=== PATIENT | female | born 1970 | race Caucasian/White ===

== ENCOUNTER → 2016-10-17 | Outpatient (CLI) | payer OTHER | LOC: FIMAGING 11:33 | PROVIDERS: ATTEND Family Medicine | DX: Z12.31 Encounter for screening mammogram for malignant neoplasm of breast (principal) | CPT/HCPCS: G0202 ==

== ENCOUNTER → 2016-10-23 | Outpatient (CLI) | payer OTHER | LOC: FIMAGING 15:28 | PROVIDERS: ATTEND Family Medicine | DX: Z12.39 Encounter for other screening for malignant neoplasm of breast (principal); R92.2 Inconclusive mammogram ==

== ENCOUNTER 2016-12-29 23:09 | Inpatient (IN) | payer OTHER ==
[2016-12-29] MEDS ORDERED: fentaNYL 100 MCG/2 ML INJ ONE (23:22)
[2016-12-29] MEDS ORDERED: ONDANSETRON 4 MG/2 ML VIAL ONE (23:22)
[2016-12-29] MEDS ORDERED: LORazepam 2 MG/ML INJ ONE (23:30)
[2016-12-29 23:35] LABS: % IMMATURE GRANULYOCYTES 0.6 % (0.0-1.1); ABSOLUTE IMMATURE GRANULOCYTES 0.05 10^3/uL (0.00-0.10); ADD DIFF? NO; ADD MORPH? NO; ADD SCAN? NO; ATYPICAL LYMPHOCYTE FLAG 10 (0-99); FRAGMENT RBC FLAG 0 (0-99); HEMATOCRIT 40.9 % (38.0-47.0); HEMOGLOBIN 13.8 g/dL (12.6-16.3); LEFT SHIFT FLG 0 (0-99); LIPEMIA HEMOLYSIS FLAG 80 (0-99); MEAN CELL HEMOGLOBIN 30.9 pg (27.9-34.1); MEAN CELL HEMOGLOBIN CONCENTR. 33.7 g/dL (32.4-36.7); MEAN CELL VOLUME 91.7 fL (81.5-99.8); MEAN PLATELET VOLUME 10.9 fL (8.7-11.7); PLATELET CLUMPS FLAG 0 (0-99); PLATELET COUNT 253 10^3/uL (150-400); RED BLOOD CELL COUNT 4.46 10^6/uL (4.18-5.33); RED CELL DISTRIBUTION WIDTH 12.7 % (11.5-15.2)
[2016-12-29] MEDS ORDERED: IOPAMIDOL (ISOVUE-300) 100 ML BTL ONE (23:46)
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
[2016-12-29] MEDS ORDERED: LORazepam 2 MG/ML INJ IVP ONE (23:51)
[2016-12-29] MEDS ORDERED: fentaNYL 100 MCG/2 ML INJ IVP ONE (23:51)
[2016-12-29] MEDS ORDERED: ONDANSETRON DISINTEGRATING 4 MG TAB PO ONE (23:51)
[2016-12-30 00:02] LABS: ANION GAP 12 mEq/L (8-16); CALCIUM 9.4 mg/dL (8.5-10.4); CARBON DIOXIDE 25 mEq/l (22-31); CHLORIDE 107 mEq/L (97-110); CREATININE 0.9 mg/dL (0.6-1.0); GLOMERULAR FILTRATION RATE > 60; GLUCOSE 94 mg/dL (70-100); POTASSIUM 3.5 mEq/L (3.5-5.2); SODIUM 144 mEq/L (134-144)
[2016-12-30] MEDS ORDERED: NS 1,000 ML IV ONE (00:21)
[2016-12-30] MEDS ORDERED: fentaNYL 100 MCG/2 ML INJ IVP ONE ×2 (00:51→02:51)
[2016-12-30] MEDS ORDERED: NS W/ 20 KCl/L 1,000 ML IV SCH (01:00)
[2016-12-30] MEDS ORDERED: CYCLOBENZAPRINE 10 MG TAB PO PRN (01:04)
[2016-12-30 01:24] LABS: ETHANOL SERUM 237 mg/dL (0-10)
[2016-12-30] MEDS ORDERED: ONDANSETRON 4 MG/2 ML VIAL ONE (01:33)
[2016-12-30] MEDS: KETOROLAC 30 MG/1 ML SDV IVP PRN ×3 (03:06→18:47)
[2016-12-30] MEDS: HYDROmorphONE/DILAUDID 1 MG/ML SYR IVP PRN ×5 (03:12→18:48)
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
[2016-12-30 05:39] LABS: % IMMATURE GRANULYOCYTES 0.8 % (0.0-1.1); ADD DIFF? NO; ADD MORPH? NO; ADD SCAN? NO; ATYPICAL LYMPHOCYTE FLAG 0 (0-99); FRAGMENT RBC FLAG 0 (0-99); HEMATOCRIT 38.5 % (38.0-47.0); LEFT SHIFT FLG 0 (0-99); LIPEMIA HEMOLYSIS FLAG 90 (0-99); MEAN CELL HEMOGLOBIN 31.3 pg (27.9-34.1); MEAN CELL HEMOGLOBIN CONCENTR. 33.8 g/dL (32.4-36.7); MEAN CELL VOLUME 92.5 fL (81.5-99.8); MEAN PLATELET VOLUME 10.9 fL (8.7-11.7); PLATELET CLUMPS FLAG 20 (0-99); PLATELET COUNT 217 10^3/uL (150-400); RED BLOOD CELL COUNT 4.16 10^6/uL (4.18-5.33); RED CELL DISTRIBUTION WIDTH 12.9 % (11.5-15.2)
[2016-12-30 06:23] LABS: ALANINE AMINOTRANSFERASE 163 IU/L (9-52); ALBUMIN 4.1 g/dL (3.5-5.0); ALKALINE PHOSPHATASE 55 IU/L (38-126); ANION GAP 16 mEq/L (8-16); ASPARTATE AMINOTRANSFERASE 195 IU/L (14-46); BILIRUBIN,TOTAL 0.4 mg/dL (0.1-1.4); CALCIUM 8.5 mg/dL (8.5-10.4); CARBON DIOXIDE 19 mEq/l (22-31); CHLORIDE 110 mEq/L (97-110); CREATININE 0.6 mg/dL (0.6-1.0); GLOMERULAR FILTRATION RATE > 60; GLUCOSE 106 mg/dL (70-100); SODIUM 145 mEq/L (134-144); TOTAL PROTEIN 6.7 g/dL (6.3-8.2)
[2016-12-30] MEDS: ACETAMINOPHEN 500 MG TAB PO SCH ×3 (06:24→22:00)
[2016-12-30] MEDS: LIDOCAINE 5% 1 EA PATCH TD SCH (07:56)
[2016-12-30] MEDS: CYCLOBENZAPRINE 10 MG TAB PO PRN ×3 (10:21→18:48)
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
--- NOTE | 2016-12-30 11:23 | TRAUMAPN ---
- Problem/Surgery Performed (1) Clavicle fracture Assessment/Plan: 12/30/2016 PAD#0 Assessment: Clavicle nondisplaced. Plan: Sling Ortho consult Qualifiers: Encounter type: subsequent encounter Clavicle location: lateral end Fracture type: closed Fracture alignment: nondisplaced Laterality: right Fracture healing: F (2) Scapular fracture Assessment/Plan: 12/30/2016 Assessment: scapular fracture tender Plan: sling will ask ortho to see Qualifiers: Encounter type: E Scapula location: S Fracture type: F Fracture alignment: F Laterality: L Fracture healing: F (3) Subdural hematoma Assessment/Plan: 12/30/2016 Assessment: GCS decreased last PM to 11- F/u CT showed no change Now oriented x3, GCS 15 Plan: Continue neuro checks (4) Ribs, multiple fractures Assessment/Plan: 12/30/2016 Assessment: IS to 1500. CXR improved Plan: Continue supportive care Rib fracture/scapular and clavicular fracture healing course outlined Qualifiers: Encounter type: subsequent encounter Fracture type: closed Laterality: right Fracture healing: F (5) Chest pain Qualifiers: Chest pain type: other chest pain Ischemic chest pain type: I Qualified Code(s): R07.89 - Other chest pain Subjective: C/o right shoulder/chest wall pain Objective: Vital Signs Temp Pulse Resp BP Pulse Ox 37.2 C 73 14 111/69 100 12/30/16 08:00 12/30/16 10:00 12/30/16 10:00 12/30/16 10:00 12/30/16 10:00 Laboratory Results 12/30/16 05:10 12/30/16 05:10 12/29/16 12/30/16 12/31/16 05:59 05:59 05:59 Intake Total 1396 Output Total 100 Balance 1296 - C-Spine Clearance Cervical Spine Cleared: Yes Provider who Cleared Cervical Spine: Physical Exam - Physical Exam General Appearance: WD/WN, alert, mild distress EENT: other (right orbit ecchymosis) Neck: non-tender, full range of motion, supple, normal inspection Respiratory: lungs clear, normal breath sounds Cardiac/Chest: regular rate, rhythm Abdomen: normal bowel sounds, non-tender, soft Pelvic Exam: deferred Rectal: deferred Back: Normal inspection Skin: normal color, warm/dry Neuro/Psych: no motor/sensory deficits, alert, normal mood/affect, oriented x 3 Time Spent w/Patient (minutes): 35
[2016-12-30] MEDS: ADDERALL 10 MG TAB PO SCH (12:33)
[2016-12-30] MEDS: ONDANSETRON 4 MG/2 ML VIAL IVP PRN ×2 (12:33→18:42)
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
[2016-12-30] MEDS: HYDROmorphONE/DILAUDID 2 MG TAB PO PRN ×2 (15:01→22:00)
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
[2016-12-30] MEDS ORDERED: PATCH REMOVAL 1 EA PATCH TD SCH (21:00)
[2016-12-31] MEDS: HYDROmorphONE/DILAUDID 2 MG TAB PO PRN ×4 (01:21→15:28)
[2016-12-31] MEDS: KETOROLAC 30 MG/1 ML SDV IVP PRN ×2 (01:21→14:28)
[2016-12-31] MEDS: ACETAMINOPHEN 500 MG TAB PO SCH ×2 (05:50→13:14)
[2016-12-31] MEDS: HYDROmorphONE/DILAUDID 1 MG/ML SYR IVP PRN (06:12)
[2016-12-31 06:14] LABS: ALANINE AMINOTRANSFERASE 91 IU/L (9-52); ALBUMIN 3.2 g/dL (3.5-5.0); ALKALINE PHOSPHATASE 53 IU/L (38-126); ANION GAP 9 mEq/L (8-16); ASPARTATE AMINOTRANSFERASE 74 IU/L (14-46); BILIRUBIN,TOTAL 1.1 mg/dL (0.1-1.4); CALCIUM 8.7 mg/dL (8.5-10.4); CARBON DIOXIDE 22 mEq/l (22-31); CHLORIDE 107 mEq/L (97-110); CREATININE 0.7 mg/dL (0.6-1.0); GLOMERULAR FILTRATION RATE > 60; GLUCOSE 95 mg/dL (70-100); POTASSIUM 3.9 mEq/L (3.5-5.2); SODIUM 138 mEq/L (134-144); TOTAL PROTEIN 5.8 g/dL (6.3-8.2)
[2016-12-31] MEDS: ONDANSETRON 4 MG/2 ML VIAL IVP PRN ×2 (06:28→12:24)
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
[2016-12-31] MEDS: ADDERALL 10 MG TAB PO SCH (08:02)
[2016-12-31] MEDS: LIDOCAINE 5% 1 EA PATCH TD SCH (08:06)
[2016-12-31] MEDS ORDERED: POLYETHYLENE GLYCOL 3350 17 GM PKT PO PRN (08:52)
[2016-12-31] MEDS ORDERED: MAGNESIUM HYDROXIDE 30 ML UDCUP PO PRN (08:52)
[2016-12-31] MEDS ORDERED: BISACODYL 10 MG SUPP PR PRN (08:52)
[2016-12-31] MEDS ORDERED: LACTULOSE 20 GM/30 ML UDCUP PO PRN (08:52)
[2016-12-31] MEDS ORDERED: PROGESTERONE,MICR 100 MG CAP PO SCH (09:00)
[2016-12-31] MEDS ORDERED: SENNOSIDES/DOCUSATE SODIUM TAB PO SCH (09:00)
[2016-12-31 11:28] VITALS: TEMP 98.5
--- NOTE | 2016-12-31 14:56 | TRAUMAPN ---
- Problem/Surgery Performed (1) Clavicle fracture Assessment/Plan: 12/30/2016 PAD#0 Assessment: Clavicle nondisplaced. Plan: Sling Ortho consult 12/31/2016 PAD#1 Assessment: Ortho agrees that there is no intervention needed at this time Plan: Office follow up Qualifiers: Encounter type: subsequent encounter Clavicle location: lateral end Fracture type: closed Fracture alignment: nondisplaced Laterality: right Fracture healing: F (2) Scapular fracture Assessment/Plan: 12/30/2016 Assessment: scapular fracture tender Plan: sling will ask ortho to see PAD#1 Assessment: C/o right back pain Plan: Sling and orthopedic follow up Qualifiers: Encounter type: E Scapula location: S Fracture type: F Fracture alignment: F Laterality: L Fracture healing: F (3) Subdural hematoma Assessment/Plan: 12/30/2016 Assessment: GCS decreased last PM to 11- F/u CT showed no change Now oriented x3, GCS 15 Plan: Continue neuro checks 12/31/2016 Assessment: Neuro checks okay C/o occasional headache Plan: Neurosurgery f/u (4) Ribs, multiple fractures Assessment/Plan: 12/30/2016 Assessment: IS to 1500. CXR improved Plan: Continue supportive care Rib fracture/scapular and clavicular fracture healing course outlined 12/31/2016 PAD#1 IS improving Lungs clear Qualifiers: Encounter type: subsequent encounter Fracture type: closed Laterality: right Fracture healing: F (5) Chest pain Qualifiers: Chest pain type: other chest pain Ischemic chest pain type: I Qualified Code(s): R07.89 - Other chest pain Assessment/Plan: PAD#1 Pain still an issue. Not set for discharge Subjective: Notes flatus and small stool. C/o right back pain but has not had Toradol today Objective: Vital Signs Temp Pulse Resp BP Pulse Ox 36.9 C 64 14 116/86 H 100 12/31/16 11:24 12/31/16 11:24 12/31/16 11:24 12/31/16 11:24 12/31/16 11:24 Laboratory Results 12/30/16 05:10 12/31/16 05:51 12/30/16 12/31/16 01/01/17 05:59 05:59 05:59 Intake Total 1396 1500 Output Total 100 700 Balance 1296 800 - C-Spine Clearance Cervical Spine Cleared: Yes Provider who Cleared Cervical Spine: Physical Exam - Physical Exam General Appearance: WD/WN, alert, moderate distress EENT: other (Right racoon eye. vision intact) Neck: non-tender, full range of motion, supple Respiratory: lungs clear, normal breath sounds Cardiac/Chest: regular rate, rhythm Abdomen: normal bowel sounds, non-tender, soft Pelvic Exam: deferred Rectal: deferred Back: Normal inspection Skin: normal color, warm/dry Extremities: other (C/o right elbow pain. No focal findings and probably represents pain radiation from shoulder) Neuro/Psych: no motor/sensory deficits, alert, normal mood/affect, oriented x 3 Time Spent w/Patient (minutes): 25
[2016-12-31 15:31] VITALS: BP 109/72
[2016-12-31 17:25] VITALS: PULSE 63; RESP 15; O2SAT 99
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
[2017-01-02] MEDS ORDERED: ESTRADIOL VIVELLE 0.05 MG PATCH TD SCH (06:00)
== END 2016-12-31 17:50 | disposition home or self-care (01) | DRG 964 ==
LOC: EDUNIT# → F2N 12-30 02:18
PROVIDERS: ADMIT Surgery; ATTEND Surgery
DX: S06.6X9A Traumatic subarachnoid hemorrhage with loss of consciousness of unspecified duration, initial encounter (principal); S06.5X1A Traumatic subdural hemorrhage with loss of consciousness of 30 minutes or less, initial encounter; S27.0XXA Traumatic pneumothorax, initial encounter; S42.034A Nondisplaced fracture of lateral end of right clavicle, initial encounter for closed fracture; S42.111A Displaced fracture of body of scapula, right shoulder, initial encounter for closed fracture; S22.41XA Multiple fractures of ribs, right side, initial encounter for closed fracture; S02.81XA Fracture of other specified skull and facial bones, right side, initial encounter for closed fracture; S02.2XXA Fracture of nasal bones, initial encounter for closed fracture; S02.40EA Zygomatic fracture, right side, initial encounter for closed fracture; S02.40CA Maxillary fracture, right side, initial encounter for closed fracture; S05.11XA Contusion of eyeball and orbital tissues, right eye, initial encounter; S27.329A Contusion of lung, unspecified, initial encounter; S80.211A Abrasion, right knee, initial encounter; F10.10 Alcohol abuse, uncomplicated; E78.5 Hyperlipidemia, unspecified; V18.0XXA Pedal cycle driver injured in noncollision transport accident in nontraffic accident, initial encounter; Y93.55 Activity, bike riding; Y92.410 Unspecified street and highway as the place of occurrence of the external cause; Y99.8 Other external cause status; Y90.7 Blood alcohol level of 200-239 mg/100 ml; R40.2412 Glasgow coma scale score 13-15, at arrival to emergency department; R40.2423 Glasgow coma scale score 9-12, at hospital admission; Z88.2 Allergy status to sulfonamides
CPT/HCPCS: 80305; 82947-QW; 92523-GN; 96374; 97116-GP; 97161-GP; 97165-GO; 97535-GO; G0480; J1170; J1885; J2060; J2405; J3010; Q9967

== ENCOUNTER 2017-01-06 13:05 | Emergency (ER) | payer OTHER ==
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
[2017-01-06] MEDS ORDERED: METOCLOPRAMIDE 10 MG/2 ML VIAL IVP ONE (13:34)
[2017-01-06] MEDS ORDERED: HYDROmorphONE/DILAUDID 1 MG/ML SYR IVP ONE (13:35)
[2017-01-06 14:25] VITALS: BP 111/84; PULSE 87; RESP 12; O2SAT 92
[2017-01-06 15:02] VITALS: TEMP 98.6
== END 2017-01-06 14:57 | disposition home or self-care (01) ==
DX: G44.309 Post-traumatic headache, unspecified, not intractable (principal); S06.5X0D Traumatic subdural hemorrhage without loss of consciousness, subsequent encounter; V18.9XXD Unspecified pedal cyclist injured in noncollision transport accident in traffic accident, subsequent encounter
CPT/HCPCS: 96374; J1170; J2765

== ENCOUNTER → 2017-05-07 | Outpatient (CLI) | payer OTHER | LOC: FIMAGING 12:15 | PROVIDERS: ATTEND Obstetrics & Gynecology Gynecology | DX: N63.10 Unspecified lump in the right breast, unspecified quadrant (principal) | CPT/HCPCS: G0206 ==

== ENCOUNTER → 2018-08-25 | Outpatient (CLI) | payer OTHER ==
--- NOTE | 2018-08-26 13:04 | CPEEG ---
[f rep st] ELECTROENCEPHALOGRAM EEG. DATE OF STUDY: 08/25/2018 INTERPRETATION: Normal EEG during wakefulness and sleep. There were no potentially epileptogenic ab normalities present during the awake or sleep recordings. REPORT: This EEG contains 10 Hz alpha activity to the posterior head regions. The background activi ty was normal and symmetric. There was no abnormal activation at rest, during photic stimulation or hyperventilation. The patient became drowsy and fell asleep during the study. There was no abnormal activation during drowsiness, sleep, or during times of arousal. /[id number]/MODL
== END ==
LOC: FCPNEURO 14:01
PROVIDERS: ATTEND Psychiatry & Neurology Neurology
DX: R51 Headache (principal); Z87.828 Personal history of other (healed) physical injury and trauma